=== PATIENT | male | born 1955 | race Caucasian/White ===

== ENCOUNTER 2018-07-23 08:58 | Emergency (ER) | payer OTHER ==
[2018-07-23 09:07] VITALS: BP 115/65
[2018-07-23] MEDS ORDERED: DOXYcycline CAP(*) 100 MG PO ONE (09:29)
--- NOTE | 2018-07-23 09:35 | ED ---
Skin Complaint - HPI Summary HPI Summary: 63 yr old male with the complaint of tick attached to the left inguinal area. He found it this morning. He has no pain. He thought he saw some blood from the area. He has no other complaints at this time. He thinks picked it up in the yard. - History of Current Complaint Chief Complaint: [facility] Time Seen by Provider: 07/23/18 09:18 Stated Complaint: TICK BITE PERSONAL Pain Intensity: 0 - Allergy/Home Medications Allergies/Adverse Reactions: Allergies Allergy/AdvReac Type Severity Reaction Status Date / Time No Known Allergies Allergy Verified 07/23/18 09:08 Home Medications: Home Medications NK [No Home Medications Reported] 07/23/18 [History Confirmed 07/23/18] PMH/Surg Hx/FS Hx/Imm Hx - Surgical History Surgery Procedure, Year, and Place: hernia; hyaline membrane Infectious Disease History: No Infectious Disease History: Denies: History Other Infectious Disease, Traveled Outside the in Last 30 Days - Family History Known Family History: Positive: None - Social History Occupation: Works From/At Home Alcohol Use: None Alcohol Amount: "not for decades" Substance Use Type: Reports: None Smoking Status (MU): Never Smoked Tobacco Type: Cigars Amount Used/How Often: few weekly Have You Smoked in the Last Year: Yes Review of Systems Constitutional: Negative Positive: Other - tick left inguinal area All Other Systems Reviewed And Are Negative: Yes Physical Exam Triage Information Reviewed: Yes Vital Signs On Initial Exam: Initial Vitals Temp Pulse Resp BP Pulse Ox 99 F 82 18 115/65 99 07/23/18 09:02 07/23/18 09:02 07/23/18 09:02 07/23/18 09:02 07/23/18 09:02 Appearance: Positive: Well-Appearing Skin: Positive: Other - engorged tick attached to left inguinal area with some engorgement. Mild erythema about 1 cm in diameter. No erythema migrans. Head/Face: Positive: Normal Head/Face Inspection Eyes: Positive: EOMI ENT: Positive: Normal ENT inspection Neck: Positive: Nontender Respiratory/Lung Sounds: Positive: Clear to Auscultation, Breath Sounds Present Cardiovascular: Positive: RRR. Negative: Murmur Abdomen Description: Negative: Distended Musculoskeletal: Positive: Strength/ROM Intact Neurological: Positive: Sensory/Motor Intact, Alert, Oriented to Person Place, Time, CN Intact II-III Psychiatric: Positive: Normal Procedures - Procedure Summary Procedure Summary: TIck from left inguinal area removed by me with right angle hook. Tick came completely off intact, and it was engorged moderately. Mild reactive erythema but no erythema migrans Diagnostics - Vital Signs Vital Signs Temp Pulse Resp BP Pulse Ox 07/23/18 09:02 99 F 82 18 115/65 99 - Laboratory Lab Statement: Any lab studies that have been ordered have been reviewed, and results considered in the medical decision making process. Course/Dx - Course Course Of Treatment: 63 yr old with tick bite and mild reactive erythema. Tick removed by me. DOxy 200 mg prophylaxis. - Diagnoses Provider Diagnoses: Tick bite Discharge - Sign-Out/Discharge Documenting (check all that apply): Patient Departure All imaging exams completed and their final reports reviewed: No Studies - Discharge Plan Condition: Good Disposition: HOME Patient Education Materials: Tick Bite (ED) Referrals: Matheus Soria MD [Primary Care Provider] - - Billing Disposition and Condition Condition: GOOD Disposition: Home
== END 2018-07-23 10:02 | disposition home or self-care (01) ==
LOC: UCEAST 08:58
DX: T63.481A Toxic effect of venom of other arthropod, accidental (unintentional), initial encounter (principal); Y92.9 Unspecified place or not applicable
CPT/HCPCS: 99202; A9270-GY; G0463